=== PATIENT | female | born 1995 | race African-American/Black ===

== ENCOUNTER 2016-04-27 12:25 | Emergency (ER) | payer SELFPAY ==
[~2016-04-27] VITALS: Ht 160 cm; Wt 50.0 kg
[2016-04-27 12:27] VITALS: BP 125/58; PULSE 74; RESP 15; TEMP 97.8; O2SAT 98
[2016-04-27] MEDS ORDERED: PRED20 PO (14:07)
--- NOTE | 2016-04-27 14:10 | PD ---
HPI Chief Complaint: Eye Problems/Injury Time Seen by Provider: 14:07 Travel History International Travel<30 days: No Contact w/Intl Traveler<30days: No Traveled to known affect area: No History of Present Illness HPI 21-year-old female presents to the emergency department for evaluation of itching and swelling of eyelids bilaterally for 2 days. Patient states that she thinks she is having an allergic reaction. States that the skin around her eyelids is a little irritated and dry as well as itchy. States she has taken 2 doses of Benadryl and 1 dose of Zyrtec over the past 3 days with minimal improvement of symptoms. She admits that she used a new eye makeup 3 days ago just before the symptoms began. States this has happened to her in the past. Denies any blurred vision, vision loss, photophobia, eye redness or drainage, fever, chills, cough or cold symptoms. Denies , last menstrual period 2 weeks ago. No other complaints. [facility] Past Medical History Medical History: Denies Significant Hx Influenza Vaccination: No ?: Not LMP: 3 weeks ago Past Surgical History Surgical History: No Previous Surgery Social History Alcohol Use: No Tobacco Use: No Substance Use: No Allergies-Medications (Allergen,Severity, Reaction): Uncoded Allergies: inhaler (Allergy, Intermediate, Hives, 04/27/16) Reported Meds & Prescriptions Reported Meds & Active Scripts Active Prednisone 20 Mg Tab 20 Mg PO BID 3 Days Review of Systems Except as stated in HPI: all other systems reviewed are Neg Physical Exam Narrative GENERAL: Well-nourished and well-developed pleasant female patient in no acute distress who is nontoxic appearing. SKIN: Warm and dry. HEAD: Normocephalic and atraumatic. EYES: Skin to bilateral lower and upper eyelids is slightly swollen with a dry irritated skin. No erythema, warmth. No injection, drainage, or hyphema noted. PERRLA. EOMI. visual acuity is equal bilaterally. ENT: No nasal drainage noted. Oropharynx is clear and the TMs are normal with good landmarks. NECK: Supple and the trachea is midline. CARDIOVASCULAR: Regular rate and rhythm. RESPIRATORY: Breath sounds are equal bilaterally with no accessory muscle use, wheezing, rhonchi, or crackles. NEUROLOGICAL: Awake, alert, and oriented. Normal speech and gait. Cranial nerves are grossly intact. Data Data Last Documented VS Vital Signs Date Time Temp Pulse Resp B/P Pulse Ox O2 Delivery O2 Flow Rate FiO2 04/27/16 12:27 97.8 74 15 125/58 98 MDM Medical Decision Making Medical Screen Exam Complete: Yes Emergency Medical Condition: Yes Differential Diagnosis Dermatitis versus allergic reaction versus eczema Narrative Course 21-year-old female presents to the emergency department for evaluation of itching and irritation to her upper and lower eyelids bilaterally for 3 days after using a new eye makeup. Patient is afebrile, vital signs are stable. The allergic reaction is to the skin around her eyes, the eyes are unremarkable on exam. She is encouraged to continue taking antihistamines. I don't feel comfortable prescribing her a topical steroid to be used this close to her eye therefore I'll give her a short course of oral steroids. She is advised to follow-up with a manager of customer billing if the symptoms persist. Patient verbalizes understanding and agreement with treatment plan. Diagnosis Primary Impression: Dermatitis due to cosmetics Qualified Code: L24.3 - Irritant contact dermatitis due to cosmetics Referrals: Primary Care Physician Patient Instructions: General Instructions Additional Instructions: Continue to take Benadryl or Zyrtec. Take medications as prescribed. Follow-up with your Primary Care Physician. Return to the ED for any acute worsening of symptoms. Med/Other Pt SpecificInfo: Prescription(s) given Scripts Prednisone 20 Mg Tab20 Mg PO BID 3 Days Ref 0 Prov:Tone Aguilera MD 04/27/16 Disposition: 01 DISCHARGE HOME Condition: Stable Gaby Colin Apr 27, 2016 14:10
== END 2016-04-27 14:32 | disposition home or self-care (01) ==
LOC: NEPB 12:25
DX: L24.9 Irritant contact dermatitis, unspecified cause (principal); L23.2 Allergic contact dermatitis due to cosmetics
CPT/HCPCS: 99283